=== PATIENT | male | born 1965 | race Caucasian/White ===

== ENCOUNTER 2017-05-06 19:29 | Emergency (ER) | payer BC, OTHER ==
--- NOTE | 2017-05-06 19:35 | NUR ---
Patient called for triage, no answer, unable to find patient waiting room.
--- NOTE | 2017-05-06 19:50 | NUR ---
Unable to find patient in ED waiting room.
--- NOTE | 2017-05-06 20:15 | NUR ---
Patient called three times, not found in ED, patient LWBS.
== END 2017-05-06 20:15 | disposition left against medical advice (07) ==
LOC: SED 19:29
DX: H57.8 Other specified disorders of eye and adnexa (principal); Z53.21 Procedure and treatment not carried out due to patient leaving prior to being seen by health care provider

== ENCOUNTER 2021-01-26 05:02 | Emergency (ER) | payer BC, OTHER ==
[~2021-01-26] VITALS: Ht 180.3 cm; Wt 93.0 kg
[2021-01-26 05:10] VITALS: BP_SYST 138
[2021-01-26 07:31] LABS: BASOPHILS % (AUTO) 0.4 % (0.0-2.0); EOSINOPHILS # (AUTO) 0.1 K/uL (0.0-0.4); EOSINOPHILS % (AUTO) 1.2 % (0.0-4.0); HEMATOCRIT 45.7 % (36-54); HEMOGLOBIN 15.7 g/dL (14.0-18.0); LYMPHOCYTES # (AUTO) 1.8 K/uL (1.0-5.5); LYMPHOCYTES % (AUTO) 24.6 % (20.5-51.5); MEAN CORPUSCULAR HEMOGLOBIN 29 pg (27-31); MEAN CORPUSCULAR HGB CONC 34 % (32-36); MEAN CORPUSCULAR VOLUME 85 fL (79.0-98.0); MONOCYTES # (AUTO) 0.6 K/uL (0.0-1.0); MONOCYTES % (AUTO) 8.8 % (1.7-9.3); NEUTROPHILS # (AUTO) 4.8 K/uL (1.8-7.7); PLATELET COUNT (AUTO) 260 K/uL (130-430); RED BLOOD CELL COUNT(AUTO) 5.38 MIL/uL (4.2-6.2); RED CELL DISTRIBUTION WIDTH 13.2 % (9.0-15.0); WHITE BLOOD COUNT (AUTO) 7.3 K/uL (4.8-10.8)
[2021-01-26 08:00] LABS: CALCIUM 9.4 mg/dL (8.4-11.0); CREATININE 1.16 mg/dL (0.55-1.30); POTASSIUM 4.2 mmol/L (3.5-5.1)
[2021-01-26 08:05] LABS: ALBUMIN 4.1 g/dL (3.4-4.8); TOTAL BILIRUBIN 0.5 mg/dL (0.0-1.0)
[2021-01-26 08:09] LABS: BILIRUBIN,URINE NEGATIVE (NEGATIVE); BLOOD, URINE NEGATIVE (NEGATIVE); CLARITY/URINE CLEAR (CLEAR); COLOR,URINE YELLOW (YELLOW); GLUCOSE,URINE NEGATIVE (NEGATIVE); KETONES,URINE TRACE (NEGATIVE); LEUKOCYTE ESTERASE ,URINE NEGATIVE (NEGATIVE); NITRITE, URINE NEGATIVE (NEGATIVE); PH,URINE 6.5 (5.0-8.0); PROTEIN URINE NEGATIVE (NEGATIVE); UROBILINOGEN,URINE 0.2 (0.2-1.0)
[2021-01-26 08:25] LABS: PROTHROMBIN TIME 10.9 SECS (9.5-12.5)
[2021-01-26] MEDS ORDERED: ASPI-862 PO (08:30)
[2021-01-26 08:36] LABS: BARBITURATE, URINE NEGATIVE (NEG <=200); BENZODIAZEPINE, URINE NEGATIVE (NEG <=150); CANNABINOID, URINE NEGATIVE (NEG <=50); COCAINE, URINE NEGATIVE (NEG <=150); METHAMPHETAMINES SCREEN,URINE NEGATIVE (NEG <=500); OPIATE, URINE NEGATIVE (NEG <=100); PHENCYCLIDINE SCREEN,URINE NEGATIVE (NEG <=25); UR TRICYCLIC ANTIDEPRESSANTS NEGATIVE (NEG <=300); URINE AMPHETAMINE NEGATIVE (NEG <=500); URINE METHADONE NEGATIVE (NEG <=200); URINE OXYCODONE SCREEN NEGATIVE (NEG <=100); URINE PROPOXYPHENE SCREEN NEGATIVE (NEG <=300)
[2021-01-26 09:00] VITALS: BP_SYST 129
== END 2021-01-26 09:00 | disposition home or self-care (01) ==
LOC: SED 05:02
DX: R20.2 Paresthesia of skin (principal); E11.9 Type 2 diabetes mellitus without complications; I49.9 Cardiac arrhythmia, unspecified; Z79.899 Other long term (current) drug therapy
CPT/HCPCS: 36415; 70450-TC; 71045; 76376; 80053; 80307; 81003; 84484; 85025; 85610-TC; 85730-TC; 93005; 99285

== ENCOUNTER 2022-02-21 19:07 | Inpatient (IN) | payer BC ==
[~2022-02-21] VITALS: Ht 180.3 cm; Wt 88.5 kg
[~2022-02-21 19:07] MED LIST: ASPI-862 PO
[2022-02-21 21:16] VITALS: BP_SYST 141
[2022-02-21] MEDS ORDERED: NACL 0.9% 2,000 ML IV ONE (21:30)
[2022-02-21] MEDS ORDERED: KETOROLAC TROMETHAMINE 30 MG VIAL IVP ONE (21:30)
[2022-02-21 21:48] LABS: BASOPHILS % (AUTO) 0.3 % (0.0-2.0); EOSINOPHILS % (AUTO) 0.1 % (0.0-4.0); HEMATOCRIT 44.2 % (36-54); HEMOGLOBIN 14.9 g/dL (14.0-18.0); LYMPHOCYTES # (AUTO) 1.4 K/uL (1.0-5.5); MEAN CORPUSCULAR HEMOGLOBIN 28 pg (27-31); MEAN CORPUSCULAR HGB CONC 34 % (32-36); MEAN CORPUSCULAR VOLUME 83 fL (79.0-98.0); MONOCYTES # (AUTO) 0.9 K/uL (0.0-1.0); MONOCYTES % (AUTO) 6.1 % (1.7-9.3); NEUTROPHILS # (AUTO) 11.6 K/uL (1.8-7.7); NEUTROPHILS % (AUTO) 83.5 % (40.0-70.0); PLATELET COUNT (AUTO) 211 K/uL (130-430); RED CELL DISTRIBUTION WIDTH 13.7 % (9.0-15.0); WHITE BLOOD COUNT (AUTO) 13.9 K/uL (4.8-10.8)
[2022-02-21 21:54] LABS: CREATININE 1.49 mg/dL (0.55-1.30)
[2022-02-21 21:59] LABS: ALBUMIN 4.5 g/dL (3.4-4.8); TOTAL BILIRUBIN 0.5 mg/dL (0.0-1.0)
[2022-02-21] MEDS ORDERED: cefTRIAXone 2 GM VIAL ONE (22:25)
[2022-02-22 00:30] LABS: BILIRUBIN,URINE NEGATIVE (NEGATIVE); BLOOD, URINE 3+ (NEGATIVE); CLARITY/URINE CLEAR (CLEAR); COLOR,URINE YELLOW (YELLOW); GLUCOSE,URINE NEGATIVE (NEGATIVE); KETONES,URINE NEGATIVE (NEGATIVE); LEUKOCYTE ESTERASE ,URINE NEGATIVE (NEGATIVE); NITRITE, URINE NEGATIVE (NEGATIVE); PROTEIN URINE NEGATIVE (NEGATIVE); UROBILINOGEN,URINE 0.2 (0.2-1.0)
[2022-02-22] MEDS ORDERED: NS 500 ML IV ONE (00:30)
[2022-02-22] MEDS ORDERED: NACL 0.9% 1,000 ML IV ONE (00:30)
[2022-02-22 01:19] LABS: BACTERIA,URINE None Seen /HPF (None Seen); MUCUS,URINE None Seen /LPF (None Seen); RBC,URINE 50-80 /HPF (0-3); WBC,URINE 0-3 /HPF (0-3)
[2022-02-22 03:20] VITALS: BP_SYST 118
[2022-02-22 08:00] VITALS: BP_SYST 146
[2022-02-22] MEDS: metFORMIN HCL 500 MG TABLET PO SCH ×2 (09:31→18:07)
[2022-02-22] MEDS ORDERED: LORazepam 2 MG/ML VIAL IVP PRN (13:00)
[2022-02-22] MEDS ORDERED: NALOXONE HCL 0.4 MG/ML AMP (NARCAN) IVP PRN ×2 (13:00)
[2022-02-22] MEDS ORDERED: INSULIN REGULAR, HUMAN 100 UNITS/ML, 3 ML VIAL (humuLIN R) SUBCUT PRN (13:00)
[2022-02-22] MEDS ORDERED: ONDANSETRON HCL 4 MG/2 ML VIAL IVP PRN (13:00)
[2022-02-22] MEDS ORDERED: ACETAMINOPHEN 325 MG TABLET PO PRN ×2 (13:00)
[2022-02-22] MEDS: HYDROcodone/ACETAMIN 10-325 MG TAB PO PRN (15:53)
[2022-02-22 20:00] VITALS: BP_SYST 139
[2022-02-22] MEDS: TAMSULOSIN HCL 0.4 MG CAP PO SCH (21:01)
[2022-02-22] MEDS: cefTRIAXone 1 GM IVPB PREMIX 50 ML IV SCH (21:05)
[2022-02-23 02:00] VITALS: BP_SYST 146
[2022-02-23 07:35] LABS: BASOPHILS # (AUTO) 0.1 K/uL (0.0-0.2); BASOPHILS % (AUTO) 0.6 % (0.0-2.0); EOSINOPHILS # (AUTO) 0.1 K/uL (0.0-0.4); HEMATOCRIT 40.6 % (36-54); HEMOGLOBIN 13.8 g/dL (14.0-18.0); LYMPHOCYTES # (AUTO) 1.9 K/uL (1.0-5.5); LYMPHOCYTES % (AUTO) 16.6 % (20.5-51.5); MEAN CORPUSCULAR HEMOGLOBIN 28 pg (27-31); MEAN CORPUSCULAR HGB CONC 34 % (32-36); MEAN CORPUSCULAR VOLUME 84 fL (79.0-98.0); MONOCYTES % (AUTO) 8.4 % (1.7-9.3); NEUTROPHILS # (AUTO) 8.6 K/uL (1.8-7.7); NEUTROPHILS % (AUTO) 73.4 % (40.0-70.0); PLATELET COUNT (AUTO) 198 K/uL (130-430); RED BLOOD CELL COUNT(AUTO) 4.85 MIL/uL (4.2-6.2); RED CELL DISTRIBUTION WIDTH 13.7 % (9.0-15.0); WHITE BLOOD COUNT (AUTO) 11.7 K/uL (4.8-10.8)
[2022-02-23 08:00] VITALS: BP_SYST 146
[2022-02-23] MEDS: metFORMIN HCL 500 MG TABLET PO SCH ×2 (08:52→17:49)
[2022-02-23] MEDS: TAMSULOSIN HCL 0.4 MG CAP PO SCH (08:52)
[2022-02-23] MEDS ORDERED: ASPIRIN 325 MG TABLET (ECOTRIN) PO SCH (09:00)
[2022-02-23 09:12] LABS: ALBUMIN 3.7 g/dL (3.4-4.8); CALCIUM 9.1 mg/dL (8.4-11.0); CREATININE 1.87 mg/dL (0.55-1.30); PHOSPHORUS 3.1 mg/dL (2.7-4.5); TOTAL BILIRUBIN 0.3 mg/dL (0.0-1.0)
[2022-02-23 12:00] VITALS: BP_SYST 156
[2022-02-23] MEDS: HYDROcodone/ACETAMIN 5-325 MG TAB (NORCO/ VICODIN) PO PRN (12:10)
[2022-02-23 16:00] VITALS: BP_SYST 148
[2022-02-23] MEDS ORDERED: METF-379 PO (16:52)
[2022-02-23] MEDS ORDERED: GLIP5TAB26 PO (16:53)
[2022-02-23] MEDS: HYDROcodone/ACETAMIN 10-325 MG TAB PO PRN (18:02)
[2022-02-23 20:00] VITALS: BP_SYST 118
[2022-02-23] MEDS: cefTRIAXone 1 GM IVPB PREMIX 50 ML IV SCH (21:01)
[2022-02-24 02:00] VITALS: BP_SYST 144
[2022-02-24] MEDS: HYDROcodone/ACETAMIN 10-325 MG TAB PO PRN ×3 (06:11→17:57)
[2022-02-24 06:57] LABS: BASOPHILS # (AUTO) 0.1 K/uL (0.0-0.2); BASOPHILS % (AUTO) 0.5 % (0.0-2.0); EOSINOPHILS # (AUTO) 0.1 K/uL (0.0-0.4); EOSINOPHILS % (AUTO) 0.5 % (0.0-4.0); HEMATOCRIT 40.6 % (36-54); HEMOGLOBIN 13.9 g/dL (14.0-18.0); LYMPHOCYTES # (AUTO) 1.5 K/uL (1.0-5.5); LYMPHOCYTES % (AUTO) 13.3 % (20.5-51.5); MEAN CORPUSCULAR HEMOGLOBIN 29 pg (27-31); MEAN CORPUSCULAR HGB CONC 34 % (32-36); MEAN CORPUSCULAR VOLUME 83 fL (79.0-98.0); MONOCYTES # (AUTO) 1.1 K/uL (0.0-1.0); MONOCYTES % (AUTO) 9.6 % (1.7-9.3); NEUTROPHILS # (AUTO) 8.7 K/uL (1.8-7.7); NEUTROPHILS % (AUTO) 76.1 % (40.0-70.0); PLATELET COUNT (AUTO) 195 K/uL (130-430); RED BLOOD CELL COUNT(AUTO) 4.88 MIL/uL (4.2-6.2); RED CELL DISTRIBUTION WIDTH 13.6 % (9.0-15.0); WHITE BLOOD COUNT (AUTO) 11.4 K/uL (4.8-10.8)
[2022-02-24 07:42] LABS: CALCIUM 9.6 mg/dL (8.4-11.0); CREATININE 1.8 mg/dL (0.55-1.30)
[2022-02-24 08:00] VITALS: BP_SYST 153
[2022-02-24] MEDS: metFORMIN HCL 500 MG TABLET PO SCH ×2 (08:00→18:00)
[2022-02-24] MEDS: TAMSULOSIN HCL 0.4 MG CAP PO SCH (08:29)
[2022-02-24 11:40] LABS: PROTHROMBIN TIME 10.6 SECS (9.5-12.5)
[2022-02-24 12:00] VITALS: BP_SYST 161
[2022-02-24 16:00] VITALS: BP_SYST 156
[2022-02-24 20:00] VITALS: BP_SYST 134
[2022-02-24] MEDS: cefTRIAXone 1 GM IVPB PREMIX 50 ML IV SCH (21:24)
[2022-02-24] MEDS: HYDROcodone/ACETAMIN 5-325 MG TAB (NORCO/ VICODIN) PO PRN (21:33)
[2022-02-25 02:00] VITALS: BP_SYST 119
[2022-02-25] MEDS ORDERED: SEVOFLURANE 15 MIN GAS INH ONE (07:26)
[2022-02-25] MEDS ORDERED: NS IRRIG SOLN 5000 ML IR ONE (07:26)
[2022-02-25] MEDS ORDERED: NS 1000 ML IV.SOLN IV ONE (07:26)
[2022-02-25] MEDS ORDERED: ROCURONIUM BROMIDE 10 MG/ML (ZEMURON) IV ONE (07:26)
[2022-02-25] MEDS ORDERED: ONDANSETRON HCL 4 MG/2 ML VIAL IVP ONE (07:26)
[2022-02-25] MEDS ORDERED: IOHEXOL 300 mgI/mL, 50 mL INFUS..BTL IV ONE (07:26)
[2022-02-25] MEDS ORDERED: PROPOFOL 200MG/ 20ML VIAL (DIPRIVAN) IV ONE (07:26)
[2022-02-25] MEDS ORDERED: KETOROLAC TROMETHAMINE 30 MG VIAL IVP ONE (07:26)
[2022-02-25 07:46] LABS: BASOPHILS % (AUTO) 0.3 % (0.0-2.0); EOSINOPHILS # (AUTO) 0.1 K/uL (0.0-0.4); EOSINOPHILS % (AUTO) 0.5 % (0.0-4.0); HEMATOCRIT 43.2 % (36-54); HEMOGLOBIN 14.8 g/dL (14.0-18.0); LYMPHOCYTES # (AUTO) 2.2 K/uL (1.0-5.5); LYMPHOCYTES % (AUTO) 18.3 % (20.5-51.5); MEAN CORPUSCULAR HEMOGLOBIN 29 pg (27-31); MEAN CORPUSCULAR HGB CONC 34 % (32-36); MEAN CORPUSCULAR VOLUME 84 fL (79.0-98.0); MONOCYTES # (AUTO) 1.5 K/uL (0.0-1.0); MONOCYTES % (AUTO) 11.9 % (1.7-9.3); NEUTROPHILS # (AUTO) 8.5 K/uL (1.8-7.7); PLATELET COUNT (AUTO) 240 K/uL (130-430); RED BLOOD CELL COUNT(AUTO) 5.15 MIL/uL (4.2-6.2); RED CELL DISTRIBUTION WIDTH 13.6 % (9.0-15.0); WHITE BLOOD COUNT (AUTO) 12.3 K/uL (4.8-10.8)
[2022-02-25 08:07] LABS: CALCIUM 10.1 mg/dL (8.4-11.0); CREATININE 1.53 mg/dL (0.55-1.30)
[2022-02-25] MEDS ORDERED: ONDANSETRON HCL 4 MG/2 ML VIAL IVP PRN (08:45)
[2022-02-25] MEDS ORDERED: HYDROmorphone 1 MG/ML INJ. CARTRIDGE IVP PRN (08:45)
[2022-02-25] MEDS ORDERED: LR 1,000 ML IV SCH (08:45)
[2022-02-25] MEDS ORDERED: LABETALOL 100 MG/ 20ML VIAL IVP PRN (08:45)
[2022-02-25 09:45] VITALS: BP_SYST 120
[2022-02-25] MEDS: TAMSULOSIN HCL 0.4 MG CAP PO SCH (09:49)
[2022-02-25] MEDS: metFORMIN HCL 500 MG TABLET PO SCH ×2 (09:49→17:04)
[2022-02-25 10:45] VITALS: BP_SYST 124
[2022-02-25 17:08] VITALS: BP_SYST 147
[2022-02-25 20:00] VITALS: BP_SYST 129
[2022-02-25] MEDS: cefTRIAXone 1 GM IVPB PREMIX 50 ML IV SCH (21:04)
[2022-02-26] VITALS: BP_SYST 146
[2022-02-26 08:00] VITALS: BP_SYST 115
[2022-02-26] MEDS: TAMSULOSIN HCL 0.4 MG CAP PO SCH (08:25)
[2022-02-26] MEDS: metFORMIN HCL 500 MG TABLET PO SCH (08:26)
[2022-02-26] MEDS ORDERED: TAMS0.4C96 PO (11:30)
[2022-02-26 12:21] LABS: BASOPHILS # (AUTO) 0.1 K/uL (0.0-0.2); BASOPHILS % (AUTO) 0.5 % (0.0-2.0); EOSINOPHILS # (AUTO) 0.4 K/uL (0.0-0.4); EOSINOPHILS % (AUTO) 3.9 % (0.0-4.0); HEMATOCRIT 41.2 % (36-54); HEMOGLOBIN 13.9 g/dL (14.0-18.0); LYMPHOCYTES # (AUTO) 3.5 K/uL (1.0-5.5); LYMPHOCYTES % (AUTO) 34.8 % (20.5-51.5); MEAN CORPUSCULAR HEMOGLOBIN 28 pg (27-31); MEAN CORPUSCULAR HGB CONC 34 % (32-36); MEAN CORPUSCULAR VOLUME 84 fL (79.0-98.0); MONOCYTES # (AUTO) 1.2 K/uL (0.0-1.0); MONOCYTES % (AUTO) 12.4 % (1.7-9.3); NEUTROPHILS # (AUTO) 4.9 K/uL (1.8-7.7); NEUTROPHILS % (AUTO) 48.4 % (40.0-70.0); PLATELET COUNT (AUTO) 255 K/uL (130-430); RED BLOOD CELL COUNT(AUTO) 4.89 MIL/uL (4.2-6.2); RED CELL DISTRIBUTION WIDTH 13.5 % (9.0-15.0)
[2022-02-26 12:33] LABS: CALCIUM 9.7 mg/dL (8.4-11.0); CREATININE 1.36 mg/dL (0.55-1.30)
[2022-02-26 13:20] VITALS: BP_SYST 115
== END 2022-02-26 13:40 | disposition home or self-care (01) | DRG 853 ==
LOC: SED 19:07 → SMU 02-22 00:36
PROVIDERS: ADMIT Internal Medicine; ATTEND Internal Medicine
PROC: BT1D1ZZ Fluoroscopy of Right Kidney, Ureter and Bladder using Low Osmolar Contrast (ICD-10-PCS; 2022-02-25)
PROC: 0T768DZ Dilation of Right Ureter with Intraluminal Device, Via Natural or Artificial Opening Endoscopic (ICD-10-PCS; principal; 2022-02-25 07:26)
DX: A41.9 Sepsis, unspecified organism (principal); N17.0 Acute kidney failure with tubular necrosis; E87.1 Hypo-osmolality and hyponatremia; N13.6 Pyonephrosis; E11.65 Type 2 diabetes mellitus with hyperglycemia; E83.51 Hypocalcemia; Z20.822 Contact with and (suspected) exposure to COVID-19; Z79.82 Long term (current) use of aspirin; Z79.899 Other long term (current) drug therapy
CPT/HCPCS: 36415; 71045; 74018; 76000; 76376; 80048; 80053; 81000; 82360; 82962; 83036; 83605; 83735; 84100; 85025; 85610-TC; 86886; 86900; 86901; 87040; 87081; 87086; 88300; 93005; 96365; 96375; 99291; C1758; C1769; C2617; J0696; J1815; J1885; J2405; J2704; J7030; J7120; Q9967